=== PATIENT | female | born 1955 | race African-American/Black ===

== ENCOUNTER 2024-03-08 09:24 | Emergency (ER) | payer MEDICARE, MEDICAID ==
[~2024-03-08] VITALS: Ht 162.6 cm; Wt 113.0 kg
[2024-03-08 09:37] VITALS: TEMP 98.7; O2SAT 98
[2024-03-08 10:09] LABS: BASOPHILS % 0.6 % (0.0-2.0); EOSINOPHILS % 2.8 % (0.0-5.0); HEMOGLOBIN. 11.9 g/dL (12.0-16.0); LYMPHOCYTES % 34.3 % (20.0-50.0); MEAN CORPUSCULAR HEMOGLOBIN 28.4 pg (28.0-32.0); MEAN CORPUSCULAR HGB CONC 33.1 g/dL (31.0-37.0); MEAN CORPUSCULAR VOLUME 85.8 fL (81.0-99.0); MEAN PLATELET VOLUME 8.6 fl (7.4-10.4); MONOCYTES % 9.4 % (2.0-8.0); NEUTROPHILS % 52.9 % (40.0-76.0); PLATELET 206 x1000/uL (130-400); RED BLOOD CELL COUNT 4.19 mill/uL (4.2-5.4); RED CELL DISTRIBUTION WIDTH 13.3 % (11.6-14.6); WHITE BLOOD COUNT 5.3 x1000/uL (4.5-11.0)
[2024-03-08 10:14] LABS: CARBON DIOXIDE 28 mEq/L (21-32); CHLORIDE 104 mEq/L (98-107); POTASSIUM 3.7 mEq/L (3.5-5.1); SODIUM 139 mEq/L (136-145)
[2024-03-08 10:15] LABS: CALCIUM 9.2 mg/dL (8.7-10.4)
[2024-03-08 10:18] LABS: PROTHROMBIN TIME 10.9 sec (9.6-11.0)
[2024-03-08 10:20] LABS: CREATININE 1.6 mg/dL (0.6-1.0); GLUCOSE 120 mg/dL (70-105); UREA NITROGEN BLOOD 16 mg/dL (9-23)
[2024-03-08 10:22] LABS: ALANINE AMINOTRANSFERASE 10 IU/L (10-49); ALBUMIN 4.1 g/dL (3.2-4.8); ASPARTATE AMINOTRANSFERASE 17 IU/L (<34); BILIRUBIN DIRECT 0.2 mg/dL (<=3.0); BILIRUBIN TOTAL 0.7 mg/dL (0.1-1.0); PROTEIN TOTAL 7.4 g/dL (6.0-8.3)
[2024-03-08 11:10] LABS: CLARITY URINE CLOUDY (CLEAR); COLOR URINE DARK YELLOW (YELLOW); GLUCOSE URINE NEGATIVE (NEGATIVE); KETONES URINE TRACE (NEGATIVE); LEUKOCYTE ESTERASE URINE 1+ (NEGATIVE); NITRITE URINE NEGATIVE (NEGATIVE); OCCULT BLOOD URINE NEGATIVE (NEGATIVE); PH URINE 5.5 (4.5-8.0); PROTEIN URINE TRACE (NEGATIVE); SPECIFIC GRAVITY URINE 1.018 (1.005-1.030)
[2024-03-08 11:40] LABS: FINE GRANULAR CASTS URINE 0-5 /lpf; HYALINE CASTS URINE 0-5 /lpf; SQUAMOUS EPITHELIAL CELL URINE 1+ /lpf (RARE/1+)
[2024-03-08 11:41] LABS: WBC URINE 0-2 /hpf (0-2)
[2024-03-08 11:42] LABS: RBC URINE NONE SEEN /hpf (0-2)
[2024-03-08 11:43] LABS: BACTERIA URINE 2+
[2024-03-08] MEDS: LEVOFLOXACIN 500MG PREMIX 100 ML IV ONE (15:44)
[2024-03-08] MEDS: METRONIDAZOLE 500 MG PREMIX 100 ML IV ONE (15:44)
[2024-03-08] MEDS: FAMOTIDINE 20MG/2ML VIAL IV ONE (16:36)
[2024-03-08 16:49] VITALS: BP 131/78; PULSE 95; RESP 15
[2024-03-08] MEDS: MORPHINE SULFATE 4 MG/ML INJ (FOR IV/IM USE) IV STA (16:49)
[2024-03-08] MEDS: ONDANSETRON HCL 4MG/2ML INJ IV STA (16:50)
[2024-03-08] MEDS ORDERED: METR-167 MT ×2 (18:07→18:11)
[2024-03-08] MEDS ORDERED: LEVO-65 MT (18:07)
== END 2024-03-08 18:26 | disposition left against medical advice (07) ==
LOC: ER 09:24 → CANBEDREQ 18:05 → ER 18:26
DX: K81.0 Acute cholecystitis (principal); I10 Essential (primary) hypertension; Z88.0 Allergy status to penicillin
CPT/HCPCS: 99285; 74176; 96374; 96375; 76705; 71045; 80076; 80048; 81003; 83690; 85025; 85610; 36415; 93005; J1956; J3490 ×2; J2405; J2270

== ENCOUNTER → 2024-08-18 | Day surgery (SDC) | payer MEDICARE, MEDICAID ==
[~2024-08-18] VITALS: Ht 157.5 cm; Wt 117.9 kg
[~2024-08-18] MED LIST: AMLO10TA80 PO; ASPI-1497 PO; BUPIVACAINE HCL/PF 0.5% (5MG/ML) 10ML ONE; CLINDAMYCIN 600MG PREMIX 50 ML IV ONE; DOCU-138 PO; ETOMIDATE 2MG/ML 10ML VIAL IV ONE; FENTANYL CITRATE/PF 50MCG/ML 2ML VIAL ONE; GLYCOPYRROLATE 0.2 MG/ML 2ML VIAL IV PRN; GLYCOPYRROLATE 0.2 MG/ML 2ML VIAL ONE; HYDRALAZINE 20MG/ML VIAL IV PRN; HYDROMORPHONE HCL/PF 1MG/ML INJ IV PRN; HYDROMORPHONE HCL/PF 1MG/ML INJ ONE; IBUP-2030 PO; LABETALOL 5MG/ML 4ML INJ IV PRN; METO-539 PO; NEOSTIGMINE METHYLSULFATE 1MG/ML 10 ML VIAL ONE; OMEP40CA20 PO; ONDANSETRON HCL 4MG/2ML INJ IV PRN; OXYB-52 PO; SKIN ADHESIVE 0.7 GM EA TOP ONE; SUGAMMADEX SODIUM 200MG/2ML VIAL IV ONE; TRAM50TA3 PO; [UNRECOGNIZED DRUG - CODE] PO
[2024-08-18] MEDS: SODIUM CHLORIDE 0.9% 1,000 ML IV SCH (08:21)
[2024-08-18] MEDS: HYDROMORPHONE HCL/PF 1MG/ML INJ IV PRN ×2 (11:34→12:12)
[2024-08-18 13:33] VITALS: BP 146/82; PULSE 73; RESP 16
[2024-08-18] MEDS: ACETAMINOPHEN WITH CODEINE 300/30MG TABLET PO NR (13:33)
== END | disposition home or self-care (01) ==
LOC: OR 06:10
PROVIDERS: ATTEND Surgery
DX: K80.10 Calculus of gallbladder with chronic cholecystitis without obstruction (principal); I10 Essential (primary) hypertension; J45.909 Unspecified asthma, uncomplicated; M19.90 Unspecified osteoarthritis, unspecified site; Z79.899 Other long term (current) drug therapy; Z98.890 Other specified postprocedural states; Z79.82 Long term (current) use of aspirin; Z88.0 Allergy status to penicillin
CPT/HCPCS: 47562; 82962; 88304; J3010; J3490 ×4; J1171; J7030; J2710

== ENCOUNTER 2024-09-18 13:35 | Emergency (ER) | payer MEDICARE, OTHER ==
[~2024-09-18] VITALS: Ht 157.5 cm; Wt 111.1 kg
[~2024-09-18 13:35] MED LIST changes: -BUPIVACAINE HCL/PF 0.5% (5MG/ML) 10ML ONE; -CLINDAMYCIN 600MG PREMIX 50 ML IV ONE; -ETOMIDATE 2MG/ML 10ML VIAL IV ONE; -FENTANYL CITRATE/PF 50MCG/ML 2ML VIAL ONE; -GLYCOPYRROLATE 0.2 MG/ML 2ML VIAL IV PRN; -GLYCOPYRROLATE 0.2 MG/ML 2ML VIAL ONE; -HYDRALAZINE 20MG/ML VIAL IV PRN; -HYDROMORPHONE HCL/PF 1MG/ML INJ IV PRN; -HYDROMORPHONE HCL/PF 1MG/ML INJ ONE; -LABETALOL 5MG/ML 4ML INJ IV PRN; -NEOSTIGMINE METHYLSULFATE 1MG/ML 10 ML VIAL ONE; -ONDANSETRON HCL 4MG/2ML INJ IV PRN; -SKIN ADHESIVE 0.7 GM EA TOP ONE; -SUGAMMADEX SODIUM 200MG/2ML VIAL IV ONE
[2024-09-18 13:45] VITALS: TEMP 97.9; O2SAT 97
[2024-09-18 14:15] LABS: BASOPHILS % 0.7 % (0.0-2.0); EOSINOPHILS % 1.7 % (0.0-5.0); HEMATOCRIT. 35.9 % (36.0-48.0); HEMOGLOBIN. 11.3 g/dL (12.0-16.0); LYMPHOCYTES % 44.7 % (20.0-50.0); MEAN CORPUSCULAR HEMOGLOBIN 27.9 pg (28.0-32.0); MEAN CORPUSCULAR HGB CONC 31.6 g/dL (31.0-37.0); MEAN CORPUSCULAR VOLUME 88.2 fL (81.0-99.0); MEAN PLATELET VOLUME 8.4 fl (7.4-10.4); MONOCYTES % 12.4 % (2.0-8.0); NEUTROPHILS % 40.5 % (40.0-76.0); PLATELET 198 x1000/uL (130-400); RED BLOOD CELL COUNT 4.07 mill/uL (4.2-5.4); RED CELL DISTRIBUTION WIDTH 14.3 % (11.6-14.6); WHITE BLOOD COUNT 4.5 x1000/uL (4.5-11.0)
[2024-09-18 14:20] LABS: CHLORIDE 107 mEq/L (98-107); POTASSIUM 3.5 mEq/L (3.5-5.1); SODIUM 143 mEq/L (136-145)
[2024-09-18 14:21] LABS: CALCIUM 9.2 mg/dL (8.7-10.4); CARBON DIOXIDE 27 mEq/L (21-32)
[2024-09-18 14:26] LABS: CREATININE 1.2 mg/dL (0.6-1.0); GLUCOSE 104 mg/dL (70-105); UREA NITROGEN BLOOD 12 mg/dL (9-23)
[2024-09-18 15:54] LABS: CLARITY URINE CLEAR (CLEAR); COLOR URINE YELLOW (YELLOW); GLUCOSE URINE NEGATIVE (NEGATIVE); KETONES URINE NEGATIVE (NEGATIVE); LEUKOCYTE ESTERASE URINE TRACE (NEGATIVE); NITRITE URINE NEGATIVE (NEGATIVE); OCCULT BLOOD URINE NEGATIVE (NEGATIVE); PH URINE 5.5 (4.5-8.0); PROTEIN URINE TRACE (NEGATIVE); SPECIFIC GRAVITY URINE 1.015 (1.005-1.030)
[2024-09-18 16:21] LABS: ALANINE AMINOTRANSFERASE 10 IU/L (10-49); ASPARTATE AMINOTRANSFERASE 18 IU/L (<34); BILIRUBIN DIRECT 0.1 mg/dL (<=3.0); BILIRUBIN TOTAL 0.4 mg/dL (0.1-1.0)
[2024-09-18 16:40] LABS: BACTERIA URINE TRACE; RBC URINE 0-2 /hpf (0-2); SQUAMOUS EPITHELIAL CELL URINE 1+ /lpf (RARE/1+)
[2024-09-18] MEDS ORDERED: CEFTRIAXONE 1GM/50ML 50 ML IV ONE (17:00)
[2024-09-18] MEDS ORDERED: ONDANSETRON HCL 4MG/2ML INJ IV PRN (17:15)
[2024-09-18] MEDS ORDERED: CLONIDINE 0.1MG TABLET PO PRN (17:15)
[2024-09-18] MEDS ORDERED: GUAIFENESIN 200MG/10ML SUGAR FREE UDC PO PRN (17:15)
[2024-09-18] MEDS ORDERED: MAGNESIUM/ALUMINUM HYDROXIDE/SIMETHICONE 30ML UDC PO PRN (17:15)
[2024-09-18] MEDS ORDERED: DOCUSATE SODIUM 100MG CAPSULE PO PRN (17:15)
[2024-09-18] MEDS ORDERED: ACETAMINOPHEN 325MG TABLET PO PRN ×2 (17:15)
[2024-09-18] MEDS ORDERED: IPRATROPIUM/ALBUTEROL 0.5-3(2.5)MG/3ML NEB HHN PRN (17:15)
[2024-09-18] MEDS ORDERED: SODIUM CHLORIDE 0.9% 1,000 ML IV SCH (17:15)
[2024-09-18] MEDS ORDERED: AMLODIPINE 5MG TABLET PO SCH (17:30)
[2024-09-18] MEDS ORDERED: ENOXAPARIN 40MG/0.4ML SYR SUBCUT SCH (18:00)
[2024-09-18] MEDS ORDERED: TRAMADOL 50MG TABLET PO PRN (18:30)
[2024-09-18] MEDS ORDERED: IBUPROFEN 800MG TABLET PO SCH (18:30)
[2024-09-18] MEDS ORDERED: IBUPROFEN 600MG TABLET PO PRN (18:45)
[2024-09-18] MEDS ORDERED: CEFTRIAXONE 1GM/50ML 50 ML IV SCH (18:45)
[2024-09-18] MEDS ORDERED: NALOXONE HCL 0.4MG/ML VIAL IV PRN (18:45)
[2024-09-18] MEDS ORDERED: METOPROLOL SUCCINATE 50MG ER TABLET PO SCH (19:00)
[2024-09-18 20:32] VITALS: BP 149/79; PULSE 90; RESP 16; O2SAT 97
[2024-09-18] MEDS ORDERED: SULFAMETHOXAZOLE/TRIMETHOPRIM 800/160MG TABLET PO SCH (21:00)
[2024-09-19] MEDS ORDERED: PANTOPRAZOLE SODIUM 40 MG/VIAL IV SCH (09:00)
[2024-09-19] MEDS ORDERED: AMLODIPINE 10MG TABLET PO SCH (09:00)
[2024-09-19] MEDS ORDERED: METOPROLOL TARTRATE 50MG TABLET PO SCH (09:00)
[2024-09-19] MEDS ORDERED: ASPIRIN 81MG EC TABLET PO SCH (09:00)
[2024-09-19] MEDS ORDERED: OXYBUTYNIN CHLORIDE 5MG TABLET PO SCH (09:00)
[2024-09-19 10:57] LABS: *AMPHETAMINES SCREEN URINE NEGATIVE (NEGATIVE)
[2024-09-19 10:58] LABS: *BARBITURATES SCREEN URINE NEGATIVE (NEGATIVE); *BENZODIAZEPINES SCREEN URINE NEGATIVE (NEGATIVE); *COCAINE SCREEN URINE NEGATIVE (NEGATIVE); CANNABINOID URINE SCREEN NEGATIVE (NEGATIVE); ECSTASY MDMA SCREEN URINE NEGATIVE (NEGATIVE); METHADONE URINE SCREEN NEGATIVE (NEGATIVE); OPIATES URINE SCREEN PRESUMPTIVE POSITIVE (NEGATIVE); PHENCYCLIDINE URINE SCREEN NEGATIVE (NEGATIVE)
== END 2024-09-18 20:46 | disposition left against medical advice (07) ==
LOC: ER 13:35 → EDBEDREQ 15:37 → ER 20:46
DX: N39.0 Urinary tract infection, site not specified (principal); I10 Essential (primary) hypertension; Z79.899 Other long term (current) drug therapy; Z79.82 Long term (current) use of aspirin; Z60.2 Problems related to living alone; Z87.19 Personal history of other diseases of the digestive system; Z87.440 Personal history of urinary (tract) infections; Z88.0 Allergy status to penicillin; Z90.49 Acquired absence of other specified parts of digestive tract
CPT/HCPCS: 36415; 74176; 80048; 80076; 80305; 81003; 85025; 99284

== ENCOUNTER 2025-02-28 19:38 | Emergency (ER) | payer MEDICARE, OTHER ==
[~2025-02-28] VITALS: Ht 162.6 cm; Wt 104.0 kg
[2025-02-28 19:40] VITALS: PULSE 65; RESP 16; O2SAT 98
[2025-02-28 19:53] VITALS: BP 161/82; TEMP 36.7; O2SAT 95
[2025-02-28] MEDS ORDERED: ISOP30DR11 LEFT EAR (21:10)
== END 2025-02-28 21:30 | disposition home or self-care (01) ==
LOC: ER 19:38
DX: H92.02 Otalgia, left ear (principal); I10 Essential (primary) hypertension; Z79.82 Long term (current) use of aspirin; Z79.899 Other long term (current) drug therapy; Z98.890 Other specified postprocedural states; Z88.0 Allergy status to penicillin; W44.F9XA Other object of natural or organic material, entering into or through a natural orifice, initial encounter; Y93.89 Activity, other specified; Y92.89 Other specified places as the place of occurrence of the external cause; Y99.8 Other external cause status
CPT/HCPCS: 99282